=== PATIENT | female | born 1970 | race Caucasian/White ===

== ENCOUNTER 2016-10-24 14:35 | Emergency (ER) | payer SELFPAY ==
[~2016-10-24] VITALS: Ht 170.2 cm; Wt 80.0 kg
[2016-10-24 14:40] VITALS: BP 130/89; PULSE 84; RESP 15; TEMP 98.2; O2SAT 98
== END 2016-10-24 18:35 | disposition left against medical advice (07) ==
LOC: EDBD → NETRI 14:35
DX: Z02.89 Encounter for other administrative examinations (principal); Z53.21 Procedure and treatment not carried out due to patient leaving prior to being seen by health care provider
CPT/HCPCS: 99281

== ENCOUNTER 2016-10-31 00:15 | Emergency (ER) | payer SELFPAY ==
[~2016-10-31] VITALS: Ht 170.2 cm; Wt 76.0 kg
[2016-10-31 00:16] VITALS: BP 136/85; PULSE 110; RESP 16; TEMP 99; O2SAT 98
[2016-10-31] MEDS ORDERED: ADDE10 PO (01:17)
--- NOTE | 2016-10-31 01:48 | PD ---
HPI Chief Complaint: Chest Pain Time Seen by Provider: 01:32 Travel History International Travel<30 days: No Contact w/Intl Traveler<30days: No Traveled to known affect area: No History of Present Illness HPI 46yo F with PMH of PTSD here stating that she is part of a top secret [employer] experiment. States that she has radioactive iodine and it is causing her to have chest pain and palpitations. States her chest pain is left sided and goes to left shoulder. At times she will be sob. Palpitations at times. Denies any fever, cough, n/v, abdominal pain, focal weakness or numbness or history of PE/DVT. Pt is requesting that I test her urine. She is very paranoid. Denies any suicidal or homicidal ideations. PFSH Past Medical History Medical History: Denies Significant Hx ?: Not Past Surgical History Surgical History: No Previous Surgery Social History Alcohol Use: No Tobacco Use: Yes Substance Use: No Allergies-Medications Reported Meds & Prescriptions Reported Meds & Active Scripts Active Reported Adderall (Amphetamine-Dextroamphetamine) 10 Mg Tab 10 Mg PO BID Avoid late evening doses. Space doses at least 4 to 6 hours if more than once/day dosing. Review of Systems Except as stated in HPI: all other systems reviewed are Neg Physical Exam Narrative GENERAL: 46yo F not in distress. SKIN: Focused skin assessment warm/dry. HEAD: Atraumatic. Normocephalic. EYES: Pupils equal and round. No scleral icterus. No injection or drainage. ENT: No nasal bleeding or discharge. Mucous membranes pink and moist. NECK: Trachea midline. No JVD. CARDIOVASCULAR: Tachycardic at 103bpm. No murmur appreciated. RESPIRATORY: No accessory muscle use. Clear to auscultation. Breath sounds equal bilaterally. GASTROINTESTINAL: Abdomen soft, non-tender, nondistended. No rebound tenderness or guarding. MUSCULOSKELETAL: No obvious deformities. No clubbing. No cyanosis. No edema. NEUROLOGICAL: Awake and alert. No obvious cranial nerve deficits. Motor grossly within normal limits. Normal speech. PSYCHIATRIC: Inappropriate mood and affect; poor insight and judgment. Racing thoughts. Pressure speech. Data Data Last Documented VS Vital Signs Date Time Temp Pulse Resp B/P (MAP) Pulse Ox O2 Delivery O2 Flow Rate FiO2 10/31/16 10:35 10/31/16 01:35 103 10/31/16 00:16 99.0 16 98 Room Air Orders Orders Basic Metabolic Panel (Bmp) (10/31/16 01:43) Complete Blood Count With Diff (10/31/16 01:43) Troponin I (10/31/16 01:43) Chest, Single Ap (10/31/16 01:43) Drug Screen, Random Urine (10/31/16 01:43) Ed Urine Pregnancytest Poc (10/31/16 01:43) Psych Screen (10/31/16 01:43) Alcohol (Ethanol) (10/31/16 01:43) Electrocardiogram (10/31/16 01:31) Diet Regular Basic (10/31/16 Breakfast) Labs Laboratory Tests Test 10/31/16 02:00 White Blood Count 7.2 TH/MM3 Red Blood Count 3.91 MIL/MM3 Hemoglobin 11.4 GM/DL Hematocrit 33.6 % Mean Corpuscular Volume 85.9 FL Mean Corpuscular Hemoglobin 29.1 PG Mean Corpuscular Hemoglobin Concent 33.9 % Red Cell Distribution Width 14.9 % Platelet Count 319 TH/MM3 Mean Platelet Volume 7.8 FL Neutrophils (%) (Auto) 55.9 % Lymphocytes (%) (Auto) 32.2 % Monocytes (%) (Auto) 8.3 % Eosinophils (%) (Auto) 1.6 % Basophils (%) (Auto) 2.0 % Neutrophils # (Auto) 4.0 TH/MM3 Lymphocytes # (Auto) 2.3 TH/MM3 Monocytes # (Auto) 0.6 TH/MM3 Eosinophils # (Auto) 0.1 TH/MM3 Basophils # (Auto) 0.1 TH/MM3 CBC Comment DIFF FINAL Differential Comment Blood Urea Nitrogen 8 MG/DL Creatinine 0.80 MG/DL Random Glucose 88 MG/DL Calcium Level 8.9 MG/DL Sodium Level 140 MEQ/L Potassium Level 3.8 MEQ/L Chloride Level 104 MEQ/L Carbon Dioxide Level 29.1 MEQ/L Anion Gap 7 MEQ/L Estimat Glomerular Filtration Rate 77 ML/MIN Troponin I LESS THAN 0.02 NG/ML Urine Opiates Screen NEG Urine Barbiturates Screen NEG Urine Amphetamines Screen POS Urine Benzodiazepines Screen NEG Urine Cocaine Screen NEG Urine Cannabinoids Screen NEG Ethyl Alcohol Level LESS THAN 3 MG/DL MDM Medical Decision Making Medical Screen Exam Complete: Yes Emergency Medical Condition: Yes Interpretation(s) EKG: Sinus tachycardia at 103bpm. Normal axis. No ST segment elevation or depression. Differential Diagnosis Paranoid schizophrenia vs. manic episode vs. atypical chest pain vs. anxiety Narrative Course 46yo F here stating that she is the subject of a top secret [employer] experiment and she is radioactive and has very atypical chest pain. Labs reviewed, no leukocytosis. H/H mildly decreased at 11.4/33.6. Troponin negative. Utox showed positive amphetamine. Alcohol negative. CXR negative. Pt seems very paranoid and this may be related to drugs. I did place a psych evaluation because I feel that it would benefit the patient. She is agreeable to a psych screen so [employer] is not needed and she denies any suicidal or homicidal ideations. Pt is medically clear for psych screen. Do not think this chest pain is cardiac. Diagnosis Primary Impression: Atypical chest pain Karuna Carvajal DO Oct 31, 2016 01:48
[2016-10-31 02:09] LABS: BASOPHIL # 0.1 TH/MM3 (0-0.2); EOSINOPHIL # 0.1 TH/MM3 (0-0.4); EOSINOPHIL % 1.6 % (0.0-4.0); HEMATOCRIT 33.6 % (35.0-46.0); HEMO FLAGS DIFF FINAL; LYMPH % 32.2 % (9.0-44.0); LYMPHOCYTE # 2.3 TH/MM3 (1.0-4.8); MEAN CELL VOLUME 85.9 FL (80.0-100.0); MEAN CORPUSCULAR HEMOGLOBIN 29.1 PG (27.0-34.0); MEAN CORPUSCULAR HGB CONC 33.9 % (32.0-36.0); MONO % 8.3 % (0.0-8.0); NEUT % 55.9 % (16.0-70.0); PLATELET COUNT 319 TH/MM3 (150-450); RED BLOOD COUNT 3.91 MIL/MM3 (4.00-5.30); RED CELL DISTRIBUTION WIDTH 14.9 % (11.6-17.2); WHITE BLOOD COUNT 7.2 TH/MM3 (4.0-11.0)
--- NOTE | 2016-10-31 02:22 | RADRPT ---
EXAM DATE/TIME: 10/31/2016 02:07 [facility] COMPARISON: No previous studies available for comparison. INDICATIONS : Chest pain MEDICAL HISTORY : None. SURGICAL HISTORY : None. ENCOUNTER: Initial ACUITY: 1 day PAIN SCORE: 7/10 LOCATION: Bilateral chest FINDINGS: Portable AP view of the chest demonstrates a normal-sized cardiac silhouette. No effusion, consolidat ion, or pneumothorax is visualized. The bones and soft tissues demonstrate no acute abnormality. CONCLUSION: No acute cardiopulmonary abnormality is identified. Bakari Tejada MD on October 31, 2016 at 2:19 Board Certified Radiologist. This report was verified electronically.
[2016-10-31 02:36] LABS: ANION GAP 7 MEQ/L (5-15); BICARBONATE 29.1 MEQ/L (21.0-32.0); BLOOD UREA NITROGEN 8 MG/DL (7-18); CHLORIDE 104 MEQ/L (98-107); GLOMERULAR FILTRATION RATE 77 ML/MIN (>89); POTASSIUM 3.8 MEQ/L (3.5-5.1); SODIUM (NA) 140 MEQ/L (136-145)
[2016-10-31 02:46] LABS: ALCOHOL LESS THAN 3 MG/DL (0-5)
--- NOTE | 2016-11-01 00:31 | EKG ---
Date Performed: 10/31/2016 Time Performed: 01:31:10 PTAGE: 46 years EKG: SINUS TACHYCARDIA POSSIBLE LEFT ATRIAL ENLARGEMENT INCOMPLETE RIGHT BUNDLE BRANCH BLOCK ABN ORMAL RHYTHM ECG NO PREVIOUS TRACING DOCTOR: Jere Stern Interpretating Date/Time 11/01/2016 00:29:36
== END 2016-10-31 10:37 | disposition left against medical advice (07) ==
LOC: NEPC 00:15 → EDBD 00:15 → NEPC 10:37
DX: R07.89 Other chest pain (principal); R00.2 Palpitations; M25.512 Pain in left shoulder; R06.02 Shortness of breath; F22 Delusional disorders; R94.31 Abnormal electrocardiogram [ECG] [EKG]; Z72.0 Tobacco use; Z79.899 Other long term (current) drug therapy; Z86.59 Personal history of other mental and behavioral disorders
CPT/HCPCS: 71010; 80048; 80307; 84484; 84703; 85025; 93005